=== PATIENT | female | born 2000 | race Caucasian/White ===

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

== ENCOUNTER 2019-03-17 14:31 | Outpatient (CLI) | payer OTHER ==
--- NOTE | 2019-05-03 16:54 | P.MSEPDOC ---
Presenting Problems - Arrival Data Date of Arrival on Unit: 03/17/19 Time of Arrival on Unit: 14:35 Mode of Transport: Ambulatory Disposition - Disposition Discharge Date: 03/17/19 Discharge Time: 14:48 I agree with the RN Medical Screening Exam: Yes Risk & Benefit of care provided described in d/c instruction: Yes Diagnosis: POSTCOITAL AND CONTACT BLEEDING (Spotting after intercourse. No evidence of labor or compromise. Pelvic rest until follows up with Dr. Lucas.)
== END 2019-03-17 14:49 | disposition home or self-care (01) ==
LOC: FBPOP 14:31
PROVIDERS: ATTEND Obstetrics & Gynecology
DX: O46.8X9 Other antepartum hemorrhage, unspecified trimester (principal); Z3A.00 Weeks of gestation of pregnancy not specified
CPT/HCPCS: 99213

== ENCOUNTER 2019-05-10 | Outpatient (CLI) | payer OTHER ==
--- NOTE | 2019-05-10 21:21 | P.MSEPDOC ---
Presenting Problems - Arrival Data Date of Arrival on Unit: 05/10/19 Time of Arrival on Unit: 12:31 Mode of Transport: Ambulatory - Complaint OB-Reason for Admission/Chief Complaint: Other Comment: prolapsed vagina Medical History - Information : 1 Para: 0 Term: 0 : 0 Abortions: Spontaneous or Elective: 0 Number of Living Children: 0 - Gestational Age Gestational Age by CECE (wks/days): 31 Weeks and 2 Days Review of Systems - Review of Systems Constitutional: No problems Breast: No problems ENT: No problems Cardiovascular: No problems Respiratory: No problems Gastrointestinal: No problems Genitourinary: No problems Musculoskeletal: No problems Neurological: No problems Skin: No problems Vital Signs - Temperature Temperature: 98 F Temperature Source: Temporal Artery Scan - Pulse Right Brachial Pulse Rate: 109 Pulse Assessment Method: Automatic Cuff - Respirations Respiratory Rate: 16 Oxygen Delivery Method: Room Air O2 Sat by Pulse Oximetry: 98 - Blood Pressure Right Arm Sitting Blood Pressure: 116/62 Blood Pressure Mean: 80 Blood Pressure Source: Automatic Cuff Medical Screen Scoring (Pre) - Cervical Exam Dilation: 0 cm = 0 Membranes: Intact - Uterine Contractions Frequency: N/A - Maternal Vital Signs Maternal Temperature: N/A Maternal Blood Pressure: N/A Signs of Preeclampsia: N/A Maternal Respirations: N/A - Maternal Trauma Maternal Trauma: N/A - Assessment - Baby A Baseline FHR: 135 Heart Rate - NICHD Category: Category I (Normal) = 0 NST: Reactive Position: N/A Station: N/A - Total Score - Baby A Total Score - Baby A: 0 - Total Score - Baby B Total Score - Baby B: 0 - Total Score - Baby C Total Score - Baby C: 0 - Level of Risk - Baby A Level of Risk - Baby A: Low (0-5) - Level of Risk - Baby B Level of Risk - Baby B: Low (0-5) - Level of Risk - Baby C Level of Risk - Baby C: Low (0-5) Medical Screen Scoring (Post) - Assessment - Baby A Heart Rate - NICHD Category: Category I (Normal) = 0 - Total Score Total Score - Baby A: 0 - Post Treatment Level of Risk Post Treatment Level of Risk - Baby A: Low (0-5) Physician Notification (Post) - Physician Notified Physician Notified Date: 05/10/19 Physician Notified Time: 12:55 Spoke With: Lance Manuel Order Received: Yes (discharge) - Notification Comment Comment: checked cervix, closed/thick/high, no bleeding, no protrusions noted. Disposition - Disposition OB Disposition: Discharge to home, Written follow up instructions reviewed Discharge Date: 05/10/19 Discharge Time: 13:00 I agree with the RN Medical Screening Exam: Yes Risk & Benefit of care provided described in d/c instruction: Yes Diagnosis: RELATED CONDITIONS, UNSPECIFIED, THIRD TRIMESTER
== END 2019-05-10 13:00 | disposition home or self-care (01) ==
CPT/HCPCS: 59025; G0463; 99213

== ENCOUNTER 2019-06-28 19:45 | Outpatient (CLI) | payer OTHER ==
[2019-06-28 21:01] VITALS: RESP 16
[2019-06-28 21:02] VITALS: BP 122/70; PULSE 82; TEMP 98.1
--- NOTE | 2019-06-29 06:32 | P.MSEPDOC ---
Presenting Problems - Arrival Data Date of Arrival on Unit: 06/28/19 Time of Arrival on Unit: 19:45 Mode of Transport: Ambulatory - Complaint OB-Reason for Admission/Chief Complaint: Rule Out SROM Comment: patient states water may have broken at 3pm, small amount of clear fluid. Medical History - Information : 1 Para: 0 Term: 0 : 0 Abortions: Spontaneous or Elective: 0 Number of Living Children: 0 - Gestational Age Gestational Age by CECE (wks/days): 38 Weeks and 2 Days Review of Systems - Review of Systems Constitutional: No problems Breast: No problems ENT: No problems Cardiovascular: No problems Respiratory: No problems Gastrointestinal: No problems Genitourinary: No problems Musculoskeletal: No problems Neurological: No problems Skin: No problems Vital Signs - Temperature Temperature: 98.1 F Temperature Source: Temporal Artery Scan - Pulse Right Brachial Pulse Rate: 82 Pulse Assessment Method: Automatic Cuff - Respirations Respiratory Rate: 16 Oxygen Delivery Method: Room Air O2 Sat by Pulse Oximetry: 100 - Blood Pressure Right Arm Blood Pressure: 122/70 Blood Pressure Mean: 87 Blood Pressure Source: Automatic Cuff Medical Screen Scoring (Pre) - Cervical Exam Dilation: 1-3 cm = 1 Effacement: More than 50% = 2 Membranes: Intact - Uterine Contractions Frequency: N/A Duration: N/A Intensity: N/A - Maternal Vital Signs Maternal Temperature: N/A Maternal Blood Pressure: N/A Signs of Preeclampsia: N/A Maternal Respirations: N/A - Maternal Trauma Maternal Trauma: N/A - Assessment - Baby A Baseline FHR: 145 Heart Rate - NICHD Category: Category I (Normal) = 0 NST: Reactive Position: N/A Station: N/A - Total Score - Baby A Total Score - Baby A: 3 - Total Score - Baby B Total Score - Baby B: 3 - Total Score - Baby C Total Score - Baby C: 3 - Level of Risk - Baby A Level of Risk - Baby A: Low (0-5) - Level of Risk - Baby B Level of Risk - Baby B: Low (0-5) - Level of Risk - Baby C Level of Risk - Baby C: Low (0-5) Physician Notification (Pre) - Physician Notified Physician Notified Date: 06/28/19 Physician Notified Time: 20:20 Physician/Practitioner Notifed:: Dr. Nieves Spoke With: Dr. Nievse New Order Received: Yes - Notification Comment Comment: RN updated Dr. Nieves that patient presented to triage with complaints that. her water had broken around 3pm. Amnisure and cervical exam completed by RN. Amnisure negative as reported by two RNs. Cervical exam of 1.5/80/-2 remains unchanged from office exam. Dr. Nieves states patient may be discharged with instructions to keep follow up appointment with Dr. Lucas and if they understand reasons to return to triage. Patient verbalizes understanding Disposition - Disposition OB Disposition: Discharge to home Discharge Date: 06/28/19 Discharge Time: 20:30 I agree with the RN Medical Screening Exam: Yes Risk & Benefit of care provided described in d/c instruction: Yes Diagnosis: FALSE LABOR AT OR AFTER 37 COMPLETED WEEKS OF GESTATION (No evidence of rupture membranes. heart tones are category 1. Patient was given labor instructions and indications to return.)
== END 2019-06-28 20:30 | disposition home or self-care (01) ==
LOC: FBPOP 19:45
PROVIDERS: ATTEND Obstetrics & Gynecology
DX: O47.1 False labor at or after 37 completed weeks of gestation (principal); Z3A.38 38 weeks gestation of pregnancy
CPT/HCPCS: 59025; 84112; G0463; 99213

== ENCOUNTER 2019-07-04 13:31 | Inpatient (IN) | payer OTHER ==
[2019-07-04 14:40] VITALS: BMI 31.1
[2019-07-04] MEDS ORDERED: OXYTOCIN 10 UNIT/ML 1 ML VIAL IM PRN (14:52)
[2019-07-04] MEDS ORDERED: METHYLERGONOVINE 0.2 MG/ML 1 ML AMP IM PRN (14:52)
[2019-07-04] MEDS ORDERED: CARBOPROST TROMETHAMINE 250 MCG/ML 1 ML AMP IM PRN (14:52)
[2019-07-04] MEDS ORDERED: LIDOCAINE 0.5% (PF) 5 MG/ML (50 ML SDV) SQ PRN (14:52)
[2019-07-04] MEDS ORDERED: TERBUTALINE 1 MG/ML VIAL SQ PRN (14:52)
[2019-07-04 15:04] LABS: Basophils % (A) 0 %; Eosinophils % (A) 0 %; HCT 37.3 % (34.0-46.0); HGB 12.7 gm/dL (11.4-16.0); Lymphocytes # (A) 1.5 k/uL (1.0-4.8); Lymphocytes % (A) 14 %; MCH 31.7 pg (25.0-35.0); MCHC 34.1 g/dL (31.0-37.0); Mean Platelet Volume 8.6; Monocytes # (A) 0.5 k/uL (0-1.0); Monocytes % (A) 5 %; Neutrophils # (A) 8.5 k/uL (1.3-7.7); Neutrophils % (A) 78 %; Platelet Count 184 k/uL (150-450); RBC 4.01 m/uL (3.80-5.40); RDW 12.9 % (11.5-15.5); WBC 10.8 k/uL (4.0-11.0)
[2019-07-04] MEDS: OXYTOCIN 30 UNITS/500 ML NS 30 UNIT in SALINE 1 500ML.BAG IV SCH (15:25)
[2019-07-04] MEDS: LACTATED RINGERS 1,000 ML IV SCH ×3 (15:26→20:53)
--- NOTE | 2019-07-04 23:12 | P.HPOB ---
History of Present Illness H&P Date: 07/04/19 Chief Complaint: Intrauterine at term: Spontaneous rupture membranes: Antonio Rivera is a 19-year-old at 39 weeks 1 day gestation who arrives following spontaneous rupture membranes at home. I did check her and she was dilated to 3 cm and there was still for bag noted and it was ruptured with clear fluid noted. Category 1 tracings noted on the monitor. Her course generally speaking has been unremarkable. She voices no complaints and she is feeling well at this time. We'll send 36 weeks revealed baby to be in the 87th percentile no other significant reason for macrosomia based on review of the chart. Pertinent labs could be possible type, Rh and it was negative, rubella was immune, hepatitis B surface antigen and RPR as well as GBS were negative. It is noted that she failed her one-hour hour Glucola screen but easily passed her 3 hour Glucola screen. Past Medical History Additional Past Medical History / Comment(s): scoliosis History of Any Multi-Drug Resistant Organisms: None Reported Past Surgical History: No Surgical Hx Reported Past Anesthesia/Blood Transfusion Reactions: No Reported Reaction Past Psychological History: Anxiety, Depression, PTSD Smoking Status: Never smoker Past Alcohol Use History: Daily Past Drug Use History: Marijuana - Past Family History Father History Unknown: Yes Medications and Allergies Home Medications Medication Instructions Recorded Confirmed Type Pnv No.95/Ferrous Fum/Folic AC 1 tab PO DAILY 06/28/19 07/04/19 History [ Multivitamin Tablet] Allergies Allergy/AdvReac Type Severity Reaction Status Date / Time Bleach (Sodium Hypochlorite) Allergy Rash/Hives Verified 06/28/19 19:59 Exam Osteopathic Statement: *. No significant issues noted on an osteopathic structural exam other than those noted in the History and Physical/Consult. Vital Signs Temp Pulse Resp BP Pulse Ox 07/04/19 14:13 98.1 F 94 17 133/68 97 Intake and Output 07/04/19 07/04/19 07/05/19 14:59 22:59 06:59 Other: Weight 77.111 kg - OBG Physical Exam Breast: both: normal (no masses) Abdomen: bowel sounds normal, no diffuse tenderness, no bruit present, no guarding noted, no hepatomegaly, no splenomegaly, no mass Vulva: both: normal Vagina: normal moisture, no discharge Cervix: no lesion, no discharge Uterus: normal size, normal contour Adnexa: both: normal Anus/Rectum: normal perianal skin, no rectal mass, no hemorrhoids, heme negative Results Result Diagrams: 07/04/19 14:50 Abnormal Lab Results - Last 24 Hours (Table) 07/04/19 Range/Units 14:50 Neutrophils # 8.5 H (1.3-7.7) k/uL
--- NOTE | 2019-07-04 23:41 | P.PROBDLV ---
Vaginal Delivery Note - . Vaginal Delivery Note: Patient progressed to complete and pushing with spontaneous vaginal delivery of a viable female over a second-degree midline laceration. Baby was delivered from left occiput anterior position. Following delivery of the head I immediately notated of retraction of head back onto the perineum. This is indicative of a suspected shoulder dystocia. At this point patient was placed in a deep Dana position and the head of the bed was lowered and the knees w ere hyperflexed deeply. The Code blue button was also initiated at this time so that any extra available personnel would be able to respond for this delivery. No attempt at anterior shoulder delivery was made as my immediate reaction was that this was a significant shoulder dystocia based on how firmly the baby retracted onto the perineum. Therefore a posterior shoulder delivery was initially attempted but I was unable to sweep the posterior arm across the face due to how low in position the arm was. Therefore I grasped under the posterior axilla and attempted to rotate the baby in a counter-clockwise fashion to release the anterior shoulder. When this proved unsuccessful the patient was instructed to stop pushing and suprapubic pressure was applied in trying to assist the baby in a clockwise fashion to release the anterior shoulder. I was after 1 attempt able to rotate the baby's anterior shoulder out from underneath the pubic bone and then the baby was delivered easily from that point. With a posterior arm delivery in a clockwise rotation with suprapubic assistance. Once baby was fully delivered mouth and nares were quickly bulb suctioned and baby was placed on mother's abdomen where the umbilical cord was clamped and cut with nursery personnel present to assume care. The total time the baby was on the perineum was between 45 and 60 seconds by our estimation. scores were 8 and 9 at one and 5 minutes respectively and the weight was 9 lbs. 13 oz. Following delivery spontaneous cry is noted both mother and baby grossly appear stable. A second degree midline laceration was easily repaired with 3-0 Vicryl following 1% Xylocaine for analgesia.
--- NOTE | 2019-07-05 06:32 | P.PN ---
Progress Note - Text Progress Note Date: 07/05/19 Patient was seen and evaluated approximately 2:30 this morning. Vital signs were stable she was afebrile. Lochia was significantly improved. Due to the complexity of the delivery I wanted to make sure that she understood and was able to ask any and all questions regarding what was occurring during the delivery as both she and her at the time of delivery were understandably very nervous and concerned about difficulty she had in delivering her child. We discussed the delivery once all family left and complications with shoulder dystocia were explained. We discussed the various maneuvers that were used to try and release the anterior shoulder from underneath the pubic bone and what the purpose of each maneuver was in the process of delivering her child. She seems to understand and grasp the gravity of how difficult it was to get her baby delivered. She remembers many some of maneuvers were used to assistance in delivering her baby as well. All questions were answered for both she and her regarding delivery and will await evaluation from pediatrics regarding baby's overall condition.
[2019-07-05] MEDS ORDERED: ROPIVACAINE 100 MG, fentaNYL (PF) 200 MCG in SODIUM CHLORIDE 0.9% 76 ML EPIDURAL ONE (07:27)
[2019-07-05] MEDS ORDERED: BENZOCAINE/MENTHOL SPRAY 1 GM/SPRAY AEROSOL TOPICAL PRN (08:07)
[2019-07-05] MEDS ORDERED: HYDROCORTISONE 2.5% RECTAL CREAM 30 GM TUBE RECTAL PRN (08:07)
[2019-07-05] MEDS ORDERED: diphenhydrAMINE 50 MG/ML 1 ML VIAL IVP PRN ×2 (08:07)
[2019-07-05] MEDS ORDERED: ACETAMINOPHEN TAB 325 MG TAB PO PRN (08:07)
[2019-07-05] MEDS ORDERED: diphenhydrAMINE 50 MG CAP PO PRN (08:07)
[2019-07-05] MEDS ORDERED: diphenhydrAMINE 25 MG CAP PO PRN (08:07)
[2019-07-05] MEDS ORDERED: WITCH HAZEL 1 EACH MED..PAD TOPICAL PRN (08:07)
[2019-07-05] MEDS ORDERED: ZOLPIDEM 5 MG TAB PO PRN (08:07)
[2019-07-05] MEDS ORDERED: SIMETHICONE 80 MG CHEWABLE PO PRN (08:07)
[2019-07-05] MEDS ORDERED: LANOLIN CREAM 5 GM TUBE TOPICAL PRN (08:07)
--- NOTE | 2019-07-05 08:45 | P.PNOBGVD ---
Subjective - Subjective Principal diagnosis: Status post vaginal delivery day #1 Interval history: Patient is doing well. Lochia is decreasing. Pain is fairly well controlled. Her baby currently is in level I nursery but she is planning on attempting to breast-feed. Patient reports: Reports appetite normal, Reports voiding normally, Reports pain well controlled, Reports ambulating normally : doing well, other (In level I nursery for observation) Objective - Latest Vital Signs Latest vital signs: Vital Signs Temp Pulse Resp BP Pulse Ox 07/05/19 04:00 98.5 F 98 16 123/81 07/05/19 01:00 98.7 F 71 16 127/81 07/05/19 00:30 79 16 133/77 07/05/19 00:00 73 16 142/79 07/04/19 23:45 80 16 130/75 07/04/19 23:30 100 16 135/81 07/04/19 23:15 96 16 131/83 07/04/19 23:00 99.1 F 97 16 132/76 07/04/19 14:13 98.1 F 94 17 133/68 97 Intake and Output 07/04/19 07/05/19 07/05/19 22:59 06:59 14:59 Output Total 100 200 Balance -100 -200 Output: Urine 100 Estimated Blood Loss 200 Other: # Voids 1 - Exam Extremities: Present: edema (1+ pitting and lower extremities). Absent: tenderness Abdomen: Present: normal appearance, soft. Absent: distention, tenderness Uterus: Present: normal, firm. Absent: tenderness - Labs Labs: Abnormal Lab Results - Last 24 Hours (Table) 07/04/19 Range/Units 14:50 Neutrophils # 8.5 H (1.3-7.7) k/uL Assessment and Plan Assessment: Status post vaginal delivery complicated by shoulder dystocia day #1 Plan: We'll continue to observe today. Continue care. Will work on breast-feeding. Anticipate discharge home tomorrow.
[2019-07-05] MEDS: IBUPROFEN 600 MG TAB PO PRN ×2 (08:47→20:40)
[2019-07-05 09:03] LABS: Basophils % (A) 0 %; Eosinophils % (A) 0 %; HCT 37.4 % (34.0-46.0); HGB 12.4 gm/dL (11.4-16.0); Lymphocytes % (A) 12 %; MCH 31.4 pg (25.0-35.0); MCHC 33.1 g/dL (31.0-37.0); MCV 94.7 fL (80.0-100.0); Mean Platelet Volume 9.2; Monocytes % (A) 6 %; Neutrophils % (A) 80 %; Platelet Count 167 k/uL (150-450); RBC 3.95 m/uL (3.80-5.40); WBC 16.3 k/uL (4.0-11.0)
[2019-07-05] MEDS ORDERED: HYDROcodone/APAP 5-325MG 1 EACH TAB PO PRN (16:36)
[2019-07-05] MEDS: SENNOSIDES-DOCUSATE SODIUM 1 EACH TAB PO SCH (20:35)
--- NOTE | 2019-07-05 22:10 | XR ---
EXAMINATION TYPE: XR pelvis AP view DATE OF EXAM: 07/05/2019 COMPARISON: NONE HISTORY: Pelvic pain TECHNIQUE: Single view FINDINGS: . Proximal femurs and hip joints are intact. There is no sign of hip dysplasia. Sacroiliac joints appear intact. There is probably a small amount of air at the pubic symphysis. IMPRESSION: Small linear collection air at the pubic symphysis could relate to minimal diastases.
[2019-07-06] MEDS: IBUPROFEN 600 MG TAB PO PRN (07:48)
[2019-07-06 07:55] VITALS: BP 135/73; PULSE 60; RESP 16; TEMP 97.5
--- NOTE | 2019-07-06 08:52 | P.DS ---
Providers Date of admission: 07/04/19 14:06 Expected date of discharge: 07/06/19 Attending physician: Katie Lucas Consults: 07/05/19 16:45 Consult Physician Routine Consulting Provider: Keith Sher Consult Reason/Comments: POSSIBLE PUBIC SEPARATION DURING SHOULDER DYSTOCIA DELIVERY. DIFFICULT AMBU Do you want consulting provider notified?: Already Contacted Primary care physician: Stated None Hospital Course: This is a 19-year-old female 1 para 0 at 39 and one sevenths weeks who presented to labor and delivery with complaints of spontaneous rupture of membranes. She underwent oxytocin augmentation of labor and delivered a viable female infant on 07/04/2019 with scores of 8 at 1 minute and 9 at 5 minutes and weight of 9 lbs. 13 oz. Her delivery was complicated by a shoulder dystocia which is described in the vaginal delivery note by Dr. Ortiz. The baby is not moving the right arm currently but is moving the fingers of the right hand. The x-rays by pediatrics do not show any fracture. Her course was complicated by pubic bone pain starting in the evening of day #1. She was given [place] and orthopedics was consulted. She did not like how she felt on the [place] and therefore does not desire to take it any further. She is walking better this morning. She is still sore over her pubic bone area. She is breast-feeding well. Lochia is decreasing. Vital signs are stable. Abdomen is soft with fundus firm and nontender. She is tender over the pubic symphysis area. Extremities show 1+ pitting edema. Impression is status post vaginal delivery complicated by shoulder dystocia day #2. Plan is to discharge home today. Routine instructions are given. She will be given a prescription for ibuprofen 600 mg every 6 hours as needed. She is also encouraged to use Tylenol in between if necessary. She will follow up with orthopedics for potential physical therapy. She is also given and abdominal binder to help stabilize her pelvis. She is advised to call the office if she has any further questions or concerns prior to her visit. Pertinent Studies: Pelvic x-ray Procedures: Oxytocin augmentation of labor Spontaneous vaginal delivery of a viable female on 07/04/2019 complicated by shoulder dystocia Patient Condition at Discharge: Stable Plan - Discharge Summary New Discharge Prescriptions: New Ibuprofen [Motrin] 600 mg PO Q6HR PRN #60 tab PRN Reason: Mild Pain Or Fever >= 100.5 Continue Pnv No.95/Ferrous Fum/Folic AC [ Multivitamin Tablet] 1 tab PO DAILY Discharge Medication List Pnv No.95/Ferrous Fum/Folic AC [ Multivitamin Tablet] 1 tab PO DAILY 06/28/19 [History] Ibuprofen [Motrin] 600 mg PO Q6HR PRN #60 tab 07/06/19 [Rx] Follow up Appointment(s)/Referral(s): Katie Lucas DO [Doctor of Osteopathic Medicine] - 6 Weeks Activity/Diet/Wound Care/Special Instructions: Instructions 1. Do not begin any exercise program for 3 weeks. 2. Do not resume sexual relations for 3 weeks or longer if uncomfortable. 3. You may take tub baths or showers at any time. 4. You may use tampons if desired after 3 weeks. 5. Keep the area of episiotomy (stitches) clean and dry. 6. If you are not nursing, wear a good fitting, supportive bra during the day and limit fluid intake for at least 1 week to prevent breast engorgement. 7. Call the office, [phone], within the next week to make appointment for your 6 week checkup if it has not already been made. 8. Report any of the following occurrences to the doctor promptly: a. Heavy, excessive bleeding b. Chills, fever c. Burning or frequency of urination d. Pain or redness and breasts if nursing e. Increasing pain or swelling in episiotomy (stitches). In addition to the above instructions, the following additional should be followed: 1. No heavy lifting or straining (exercising) until after 6 week checkup. 2. Keep abdominal incision clean and dry: You may wear a dressing if more comfortable. 3. Make office appointment for 10 days after going home or as instructed by her doctor. Discharge Disposition: HOME SELF-CARE
--- NOTE | 2019-07-06 09:00 | P.CNOR ---
History of Present Illness - [facility] Consult date: 07/06/19 Consult reason: joint pain History of present illness: Patient is a 19-year-old female who was seen and evaluated on the family birthing unit. Patient gave vaginally to a nonanatomic yesterday, there was enough social history social. After the birthing process, patient did complain of a lot of pelvic pain. The INTERNAL AUDIT CONSULTANT doctor did consult orthopedics for this issue. X-rays reportedly last night. X-rays demonstrated slight widening of the pubic symphysis, demonstrating a pubic symphysis diastasis. Evaluation today at bedside, the INTERNAL AUDIT CONSULTANT doctor was present, was able to discuss this with her and the patient. She states that the patient was ambulating better today, pain is better. She does still have discomfort over the pubic stenosis with palpation. She denies any numbness or tingling of the lower extremities, she has no issues with bowel or bladder function at this time. She denies any significant groin pain bilaterally. She denies any previous orthopedic surgeon involving the bilateral lower extremities. Review of Systems Constitutional: Reports as per [facility] Past Medical History Additional Past Medical History / Comment(s): scoliosis History of Any Multi-Drug Resistant Organisms: None Reported Past Surgical History: No Surgical Hx Reported Past Anesthesia/Blood Transfusion Reactions: No Reported Reaction Past Psychological History: Anxiety, Depression, PTSD Smoking Status: Never smoker Past Alcohol Use History: Daily Past Drug Use History: Marijuana - Past Family History Father History Unknown: Yes Medications and Allergies Home Medications Medication Instructions Recorded Confirmed Type Pnv No.95/Ferrous Fum/Folic AC 1 tab PO DAILY 06/28/19 07/04/19 History [ Multivitamin Tablet] Ibuprofen [Motrin] 600 mg PO Q6HR PRN #60 tab 07/06/19 Rx Allergies Allergy/AdvReac Type Severity Reaction Status Date / Time Bleach (Sodium Hypochlorite) Allergy Rash/Hives Verified 06/28/19 19:59 Physical Examination General orthopedic exam: Patient was visualized ambulating in the room today, no significant gait dysfunction Range of motion of the bilateral lower extremities reproduces some slight discomfort in the pelvic region, there is no groin pain Patient has full range of motion with the knees bilaterally, along with foot and ankles Sensation to light touch stress extremities are intact, dorsalis pedis pulse bilaterally is 2+ Results - Labs Labs: Abnormal Lab Results - Last 24 Hours (Table) 07/05/19 Range/Units 08:19 WBC 16.3 H (4.0-11.0) k/uL Neutrophils # 13.0 H (1.3-7.7) k/uL H & H 07/04/19 07/05/19 Range/Units 14:50 08:19 Hgb 12.7 12.4 (11.4-16.0) gm/dL Hct 37.3 37.4 (34.0-46.0) % Result Diagrams: 07/05/19 08:19 Assessment and Plan Plan: Imaging: X-rays of the pelvis were reviewed, slight widening of the pubic symphysis noted, no other acute bony abnormalities Assessment: 1. Pubic symphysis diastasis 2. Recent vaginal delivery Plan: Was able to discuss the case, including with physical exam findings and imaging studies may attending Dr. Sher. Recommend physical therapy evaluation with a good home exercise program for pelvic floor strengthening. I discussed with the patient and activity modification, including avoiding heavy lifting and crossing legs [id number] Tylenol as needed for discomfort Weight-bear as tolerated We will be available for any further questions regarding this patient Time with Patient: Less than 30
[2019-07-06] MEDS: LACTATED RINGERS 1,000 ML IV SCH ×2 (09:08→09:09)
[2019-07-06] MEDS: OXYTOCIN 30 UNITS/500 ML NS 30 UNIT in SALINE 1 500ML.BAG IV SCH (09:09)
[2019-07-06] MEDS: SENNOSIDES-DOCUSATE SODIUM 1 EACH TAB PO SCH (09:10)
--- NOTE | 2019-07-06 19:18 | P.MSEPDOC ---
Presenting Problems - Arrival Data Date of Arrival on Unit: 07/04/19 Time of Arrival on Unit: 14:25 Mode of Transport: Wheelchair - Complaint OB-Reason for Admission/Chief Complaint: Rule Out SROM Comment: pt here with r/o rom around 1215 today, pt was at appt with dr lucas this am and. was dilated to 2.5cm, pt has been spotting bright red mucous since, denies contractions,. abd soft and non tender, reports + fm, denies complications Medical History - Information : 1 Para: 0 Term: 0 : 0 Abortions: Spontaneous or Elective: 0 Number of Living Children: 0 - Gestational Age Gestational Age by CECE (wks/days): 39 Weeks and 3 Days Review of Systems - Review of Systems Constitutional: No problems Breast: No problems ENT: No problems Cardiovascular: No problems Respiratory: No problems Gastrointestinal: No problems Genitourinary: No problems Musculoskeletal: No problems Neurological: No problems Skin: No problems Vital Signs - Temperature Temperature: 97.5 F Temperature Source: Oral - Pulse Right Brachial Pulse Rate: 60 Pulse Assessment Method: Automatic Cuff - Respirations Respiratory Rate: 16 Oxygen Delivery Method: Room Air - Blood Pressure Right Arm Blood Pressure: 135/73 Blood Pressure Mean: 93 Blood Pressure Source: Automatic Cuff Medical Screen Scoring (Pre) - Cervical Exam Dilation: 1-3 cm = 1 Effacement: More than 50% = 2 Membranes: Ruptured = 3 - Uterine Contractions Frequency: > 5 minutes apart = 1 Duration: > 40 seconds = 2 Intensity: N/A - Maternal Vital Signs Maternal Temperature: N/A Maternal Blood Pressure: N/A Signs of Preeclampsia: N/A Maternal Respirations: N/A - Maternal Trauma Maternal Trauma: N/A - Assessment - Baby A Baseline FHR: 155 Heart Rate - NICHD Category: Category I (Normal) = 0 NST: Reactive Position: N/A Station: N/A - Total Score - Baby A Total Score - Baby A: 9 - Total Score - Baby B Total Score - Baby B: 9 - Total Score - Baby C Total Score - Baby C: 9 - Level of Risk - Baby A Level of Risk - Baby A: Medium (6-9) - Level of Risk - Baby B Level of Risk - Baby B: Medium (6-9) - Level of Risk - Baby C Level of Risk - Baby C: Medium (6-9) Physician Notification (Pre) - Physician Notified Physician Notified Date: 07/04/19 Physician Notified Time: 14:21 Physician/Practitioner Notifed:: Dr Lucas Spoke With: Dr Lucas New Order Received: Yes (admit for labor to [facility]) Disposition - Disposition OB Disposition: Admit Discharge Date: 07/06/19 Discharge Time: 11:05 I agree with the RN Medical Screening Exam: Yes Risk & Benefit of care provided described in d/c instruction: Yes Diagnosis: 39 WEEKS GESTATION OF
== END 2019-07-06 11:05 | disposition home or self-care (01) | DRG 807 ==
LOC: FBPOP 13:31 → 4FBP 14:06
PROVIDERS: ADMIT Obstetrics & Gynecology; ATTEND Obstetrics & Gynecology
PROC: 10D07Z7 Extraction of Products of Conception, Internal Version, Via Natural or Artificial Opening (ICD-10-PCS; principal; 2019-07-04)
PROC: 0KQM0ZZ Repair Perineum Muscle, Open Approach (ICD-10-PCS; 2019-07-04)
PROC: 00HU33Z Insertion of Infusion Device into Spinal Canal, Percutaneous Approach (ICD-10-PCS; 2019-07-04)
PROC: 3E0R3BZ Introduction of Anesthetic Agent into Spinal Canal, Percutaneous Approach (ICD-10-PCS; 2019-07-04)
DX: O70.1 Second degree perineal laceration during delivery (principal); Z37.0 Single live birth; M41.9 Scoliosis, unspecified; O26.72 Subluxation of symphysis (pubis) in childbirth; O36.60X0 Maternal care for excessive fetal growth, unspecified trimester, not applicable or unspecified; O66.0 Obstructed labor due to shoulder dystocia; O99.619 Diseases of the digestive system complicating pregnancy, unspecified trimester; K21.9 Gastro-esophageal reflux disease without esophagitis; Z79.899 Other long term (current) drug therapy; Z3A.39 39 weeks gestation of pregnancy; Z86.59 Personal history of other mental and behavioral disorders; Z91.048 Other nonmedicinal substance allergy status
CPT/HCPCS: 59025; 72170; 84112; 85025; 86850; 86900; 86901; 88307; 99213

== ENCOUNTER 2020-04-06 19:25 | Inpatient (IN) | payer MEDICAID, OTHER ==
[2020-04-06] MEDS ORDERED: DIPH,PERTUS(ACELL)TETVAC-LF 0.5 ML VIAL IM ONE (19:35)
--- NOTE | 2020-04-06 19:42 | ED ---
General Adult HPI <Keith Ochoa - Last Filed: 04/06/20 21:20> - General Source: patient, police Mode of arrival: ambulatory Limitations: no limitations <Stevo Aceves - Last Filed: 04/06/20 22:48> - General Chief complaint: Psychiatric Symptoms Stated complaint: Petition Time Seen by Provider: 04/06/20 19:35 - History of Present Illness Initial comments: Dictation was produced using [employer] dictation software. please excuse any grammatical, word or spelling errors. This patient was cared for during a federal and state declared state of emergency secondary to Covid 19 Chief Complaint: 20-year-old female presents with suicidal ideation and behavior History of Present Illness: 20-year-old female she is brought in by law enforcement. Law enforcement was allegedly called by patient's fiance. Today patient's been elicited disrespected. She began cutting herself on the wrist. Patient caused multiple lacerations to the bilateral anterior forearms. Patient states she's been suicidal before. She feels depressed. The ROS documented in this emergency department record has been reviewed and confirmed by me. Those systems with pertinent positive or negative responses have been documented in the HPI. All other systems are other negative and/or noncontributory. PHYSICAL EXAM: General Impression: Alert and oriented x3, not in acute distress HEENT: Normocephalic atraumatic, extra-ocular movements intact, pupils equal and reactive to light bilaterally, mucous membranes moist. Cardiovascular: Heart regular rate and rhythm Chest: Able to complete full sentences, no retractions, no tachypnea Abdomen: abdomen soft, non-tender, non-distended, no organomegaly Musculoskeletal: Pulses present and equal in all extremities, no peripheral edema Motor: no focal deficits noted Neurological: CN II-XII grossly intact, no focal motor or sensory deficits noted Skin: Intact with no visualized rashes Multiple superficial lacerations to the bilateral anterior forearms. Some are very superficial but there is a portion that is deeper measuring approximately 6 cm total for both forearms Psych: Normal affect and mood ED course: 20-year-old female with suicidal behavior. Vital Signs upon arrival are within acceptable limits. Lacerations were repaired by physician virtual assistant, Andres Ochoa. Patient medically cleared for EPS evaluation. EPS evaluated patient and will admit to inpatient psychiatry. (Stevo Aceves) - Related Data Home Medications Medication Instructions Recorded Confirmed No Known Home Medications 04/06/20 04/06/20 Allergies Allergy/AdvReac Type Severity Reaction Status Date / Time Bleach (Sodium Hypochlorite) Allergy Rash/Hives Verified 04/06/20 21:26 Review of Systems ROS Other: All systems not noted in ROS Statement are negative. <Keith Ochoa - Last Filed: 04/06/20 21:20> ROS Other: All systems not noted in ROS Statement are negative. <Stevo Aceves - Last Filed: 04/06/20 22:48> ROS Statement: Those systems with pertinent positive or pertinent negative responses have been documented in the HPI. Past Medical History Additional Past Medical History / Comment(s): scoliosis History of Any Multi-Drug Resistant Organisms: None Reported Past Surgical History: No Surgical Hx Reported Past Anesthesia/Blood Transfusion Reactions: No Reported Reaction Past Psychological History: Anxiety, Depression, PTSD Smoking Status: Vaper Past Alcohol Use History: Daily Past Drug Use History: Marijuana - Past Family History Father History Unknown: Yes <Stevo Aceves - Last Filed: 04/06/20 22:48> General Exam Limitations: no limitations <Stevo Aceves - Last Filed: 04/06/20 22:48> Course Vital Signs 04/06/20 04/06/20 04/06/20 19:29 20:28 22:33 Temperature 99.0 F 98.1 F Pulse Rate 95 69 Respiratory 20 16 18 Rate Blood Pressure 148/93 135/79 O2 Sat by Pulse 99 98 Oximetry Procedures - Laceration Laceration #1 Consent Obtained: verbal consent Indication: laceration Site: upper extremity (left palmar wrist ) Size (cm): 2 (2 cm ) Description: linear Depth: simple, single layer Anesthetic Used: lidocaine 1% Anesthesia Technique: local infiltration Amount (mls): 3 Pre-repair: wound explored, irrigated extensively Type of Sutures: nylon Size of Sutures: 5-0 Number of Sutures: 4 Technique: simple, interrupted Patient Tolerated Procedure: well, no complications Laceration #2 Consent Obtained: verbal consent Indication: laceration Site: upper extremity (right forearm palmar) Size (cm): 2 Description: linear Depth: simple, single layer Anesthetic Used: lidocaine 1% Anesthesia Technique: local infiltration Amount (mls): 2 Pre-repair: wound explored, irrigated extensively, deep structures intact Type of Sutures: nylon Size of Sutures: 5-0 Number of Sutures: 2 Technique: simple, interrupted Patient Tolerated Procedure: well, no complications <Keith Ochoa - Last Filed: 04/06/20 21:20> Medical Decision Making <Keith Ochoa - Last Filed: 04/06/20 21:20> - Medical Decision Making I was asked by attending physician Dr. Aceves to perform laceration repair. The patient has multiple superficial lacerations on palmar aspects of both for earms. One laceration on left forearm was open for approximately 2 cm. This was approximated with 4 simple interrupted sutures. The remainder of the laceration which is superficial was closed with Steri-Strips. All lacerations were vigorously irrigated. On the right forearm palmar aspects patient also has multiple superficial lacerations. 2 cm laceration does require closure. 2 simple interrupted sutures. 2 steri strips also used (Keith Ochoa) - Lab Data Lab Results 04/06/20 04/06/20 Range/Units 20:35 20:42 Urine HCG, Qual Not Detected (Not Detectd) Urine Opiates Screen Not Detected (NotDetected) Ur Oxycodone Screen Not Detected (NotDetected) Urine Methadone Screen Not Detected (NotDetected) Ur Propoxyphene Screen Not Detected (NotDetected) Ur Barbiturates Screen Not Detected (NotDetected) U Tricyclic Antidepress Not Detected (NotDetected) Ur Phencyclidine Scrn Not Detected (NotDetected) Ur Amphetamines Screen Not Detected (NotDetected) U Methamphetamines Scrn Not Detected (NotDetected) U Benzodiazepines Scrn Not Detected (NotDetected) Urine Cocaine Screen Not Detected (NotDetected) U Marijuana (THC) Screen Detected H (NotDetected) Disposition <Keith Ochoa - Last Filed: 04/06/20 21:20> Decision Time: 22:48 <Stevo Aceves - Last Filed: 04/06/20 22:48> Clinical Impression: Suicidal behavior Disposition: ADMITTED IP TO THIS [facility] Condition: Fair Referrals: None,Stated [Primary Care Provider] - 1-2 days
[2020-04-06] MEDS: LIDOCAINE 1%-EPI 1:100,000 20 ML VIAL SQ STA ×2 (20:02→20:09)
[2020-04-06] MEDS ORDERED: LIDOCAINE 1% INJ 10MG/ML (20 ML MDV) SQ STA (20:10)
[2020-04-06 21:01] LABS: Amphetamine Screen,Urine Not Detected (NotDetected); Barbiturate Screen,Urine Not Detected (NotDetected); Benzodiazepines Screen,Urine Not Detected (NotDetected); Cocaine Screen,Urine Not Detected (NotDetected); Methadone Screen, Urine Not Detected (NotDetected); Opiate Screen,Urine Not Detected (NotDetected); Oxycodone Screen, Urine Not Detected (NotDetected); Phencyclidine Screen,Urine Not Detected (NotDetected); Tricyclic Antidepressant,Urine Not Detected (NotDetected); Urn Cannabinoid Scrn Detected (NotDetected)
[2020-04-06] MEDS ORDERED: ACETAMINOPHEN TAB 325 MG TAB PO PRN (23:04)
[2020-04-06] MEDS ORDERED: MAG HYDROX/AL HYDROX/SIMETH 30 ML CUP PO PRN (23:04)
[2020-04-06] MEDS ORDERED: MAGNESIUM HYDROXIDE 2,400 MG/10 ML CUP PO PRN (23:04)
[2020-04-06] MEDS: LORazepam 1 MG TAB PO PRN (23:56)
--- NOTE | 2020-04-07 04:09 | P.CONS ---
History of Present Illness - Reason for Consult Consult date: 04/07/20 - History of Present Illness Patient is a 20-year-old female with a PMH of depression who presented to the ED with suicidal ideation. The patient was admitted to the mental health unit where she was seen and evaluated earlier today. The patient reports that due to issues in her social life and her feelings of self worth, she had been contemplating suicide and had thereby cut herself on her forearms. The patient was brought in under police custody after her fianc had called due to the above incident. The patient had multiple sutures placed in the emergency room. At time of the interview, she was tearful though denied any active complaints. She denied chest pain, shortness of breath or chills, nausea, or vomiting. Laboratory evaluation from the emergency room revealed urine toxicology positive for marijuana. Review of Systems Pertinent positives and negatives as discussed in HPI, a complete review of systems was performed and all other systems are negative. Past Medical History Additional Past Medical History / Comment(s): scoliosis History of Any Multi-Drug Resistant Organisms: None Reported Past Surgical History: No Surgical Hx Reported Past Anesthesia/Blood Transfusion Reactions: No Reported Reaction Past Psychological History: Anxiety, Depression, PTSD Smoking Status: Vaper Past Alcohol Use History: Daily Past Drug Use History: Marijuana - Past Family History Father History Unknown: Yes Medications and Allergies Home Medications Medication Instructions Recorded Confirmed Type No Known Home Medications 04/06/20 04/06/20 History Allergies Allergy/AdvReac Type Severity Reaction Status Date / Time Bleach (Sodium Hypochlorite) Allergy Rash/Hives Verified 04/06/20 21:26 Physical Exam Vitals: Vital Signs Temp Pulse Pulse Resp BP BP Pulse Ox 04/07/20 00:39 98.2 F 69 16 137/78 98 04/06/20 23:15 98.0 F 82 18 98 04/06/20 22:33 98.1 F 69 18 135/79 98 04/06/20 20:28 16 04/06/20 19:29 99.0 F 95 20 148/93 99 Intake and Output 04/06/20 04/06/20 04/07/20 14:59 22:59 06:59 Other: Weight 54.431 kg 59.9 kg General: non toxic, no distress, appears at stated age, normal weight Derm: no unusual rashes/lesions no unusual ecchymoses, warm, dry Head: atraumatic, normocephalic, symmetric Eyes: EOMI, no lid lag, anicteric sclera, pupils equal round reactive to light ENT: Nose and ears atraumatic, no thrush, no pharyngeal erythema Neck: No thyromegaly, no cervical lymphadenopathy, trachea midline, supple Mouth: no lip lesion, mucus membranes moist Cardiovascular: S1S2 reg, no murmur, positive posterior tibial pulse bilateral, no edema, capillary refill less than 2 seconds Lungs: CTA bilateral, no rhonchi, no rales , no accessory muscle use Abdominal: soft, nontender to palpation, no guarding, no appreciable organomegaly, normal bowel sounds Ext: Forearm dressings in place, clean and dry, no gross muscle atrophy, muscle strength 5 out of 5 in all 4 extremities grossly, no contractures, Neuro: CN II-XI grossly intact, light touch intact all 4 extremities, finger to nose within normal limits, Psych: Alert, oriented, depressed affect Results Labs: Abnormal Lab Results - Last 24 Hours (Table) 04/06/20 Range/Units 20:35 U Marijuana (THC) Screen Detected H (NotDetected) Assessment and Plan Plan: Depression with suicidal ideation -As per psychiatry Forearm lacerations status post sutures -Wound care Marijuana abuse -Advised on the importance of cessation Thank you for allowing us to participate in the care of this patient. We will follow peripherally. Do not hesitate to contact us with questions. Someone can be reached from the [facility] hospitalist group at all hours of the day at [phone].
[2020-04-07 06:20] LABS: Basophils % (A) 0 %; Eosinophils # (A) 0.2 k/uL (0-0.7); Eosinophils % (A) 2 %; HCT 41.3 % (34.0-46.0); HGB 13.6 gm/dL (11.4-16.0); Lymphocytes # (A) 2.3 k/uL (1.0-4.8); Lymphocytes % (A) 28 %; MCH 31.6 pg (25.0-35.0); MCV 95.7 fL (80.0-100.0); Mean Platelet Volume 8.5; Monocytes # (A) 0.4 k/uL (0-1.0); Monocytes % (A) 5 %; Neutrophils # (A) 5.3 k/uL (1.3-7.7); Neutrophils % (A) 64 %; Platelet Count 207 k/uL (150-450); RBC 4.32 m/uL (3.80-5.40); RDW 12.6 % (11.5-15.5); WBC 8.4 k/uL (3.8-10.6)
[2020-04-07 06:32] LABS: ALT 11 U/L (4-34); AST 23 U/L (14-36); African American GFR (CKD) >90 (>60 ml/min/1.73 sqM); Albumin 4.4 g/dL (3.5-5.0); Alkaline Phosphatase 77 U/L (38-126); Anion Gap 7 mmol/L; Blood Urea Nitrogen 15 mg/dL (7-17); Carbon Dioxide 22 mmol/L (22-30); Chloride 110 mmol/L (98-107); Cholesterol 157 mg/dL (<200); Glucose 81 mg/dL (74-99); HDL Cholesterol 92 mg/dL (40-60); LDL Cholesterol,Calculated 56 mg/dL (0-99); Non-African American GFR(CKD) >90 (>60 ml/min/1.73 sqM); Potassium 3.8 mmol/L (3.5-5.1); Sodium 139 mmol/L (137-145); Total Bilirubin 0.7 mg/dL (0.2-1.3); Total Protein 7.2 g/dL (6.3-8.2); Triglycerides 43 mg/dL (<150)
[2020-04-07] MEDS: NICOTINE 14MG/24HR PATCH TRANSDERM SCH (10:45)
[2020-04-07] MEDS: LORazepam 1 MG TAB PO PRN ×2 (10:46→21:04)
[2020-04-07 13:48] LABS: Hemoglobin A1C 4.9 % (4.0-6.0)
--- NOTE | 2020-04-07 15:41 | P.HP ---
Psychiatric H&P - . H&P Date: 04/07/20 History & Physical: Allergies Allergy/AdvReac Type Severity Reaction Status Date / Time Bleach (Sodium Hypochlorite) Allergy Rash/Hives Verified 04/06/20 21:26 Vital Signs Temp 98.0 F 04/07/20 10:49 Pulse 65 04/07/20 10:49 Resp 16 04/07/20 10:49 BP 125/77 04/07/20 10:49 Pulse Ox 99 04/07/20 10:49 Intake & Output 04/06/20 04/07/20 04/07/20 18:59 06:59 18:59 Weight 59.9 kg Laboratory Last Values WBC 8.4 k/uL (3.8-10.6) 04/07/20 06:00 RBC 4.32 m/uL (3.80-5.40) 04/07/20 06:00 Hgb 13.6 gm/dL (11.4-16.0) 04/07/20 06:00 Hct 41.3 % (34.0-46.0) 04/07/20 06:00 MCV 95.7 fL (80.0-100.0) 04/07/20 06:00 MCH 31.6 pg (25.0-35.0) 04/07/20 06:00 MCHC 33.0 g/dL (31.0-37.0) 04/07/20 06:00 RDW 12.6 % (11.5-15.5) 04/07/20 06:00 Plt Count 207 k/uL (150-450) 04/07/20 06:00 Neutrophils % 64 % 04/07/20 06:00 Lymphocytes % 28 % 04/07/20 06:00 Monocytes % 5 % 04/07/20 06:00 Eosinophils % 2 % 04/07/20 06:00 Basophils % 0 % 04/07/20 06:00 Neutrophils # 5.3 k/uL (1.3-7.7) 04/07/20 06:00 Lymphocytes # 2.3 k/uL (1.0-4.8) 04/07/20 06:00 Monocytes # 0.4 k/uL (0-1.0) 04/07/20 06:00 Eosinophils # 0.2 k/uL (0-0.7) 04/07/20 06:00 Basophils # 0.0 k/uL (0-0.2) 04/07/20 06:00 Sodium 139 mmol/L (137-145) 04/07/20 06:00 Potassium 3.8 mmol/L (3.5-5.1) 04/07/20 06:00 Chloride 110 mmol/L (98-107) H 04/07/20 06:00 Carbon Dioxide 22 mmol/L (22-30) 04/07/20 06:00 Anion Gap 7 mmol/L 04/07/20 06:00 BUN 15 mg/dL (7-17) 04/07/20 06:00 Creatinine 0.57 mg/dL (0.52-1.04) 04/07/20 06:00 Est GFR (CKD-EPI)AfAm >90 (>60 ml/min/1.73 sqM) 04/07/20 06:00 Est GFR (CKD-EPI)NonAf >90 (>60 ml/min/1.73 sqM) 04/07/20 06:00 Glucose 81 mg/dL (74-99) 04/07/20 06:[address] Glu mg/dL 94 04/07/20 06:00 Hemoglobin A1c 4.9 % (4.0-6.0) 04/07/20 06:00 Calcium 9.0 mg/dL (8.4-10.2) 04/07/20 06:00 Total Bilirubin 0.7 mg/dL (0.2-1.3) 04/07/20 06:00 AST 23 U/L (14-36) 04/07/20 06:00 ALT 11 U/L (4-34) 04/07/20 06:00 Alkaline Phosphatase 77 U/L (38-126) 04/07/20 06:00 Total Protein 7.2 g/dL (6.3-8.2) 04/07/20 06:00 Albumin 4.4 g/dL (3.5-5.0) 04/07/20 06:00 Triglycerides 43 mg/dL (<150) 04/07/20 06:00 Cholesterol 157 mg/dL (<200) 04/07/20 06:00 LDL Cholesterol, Calc 56 mg/dL (0-99) 04/07/20 06:00 HDL Cholesterol 92 mg/dL (40-60) H 04/07/20 06:00 TSH 1.610 mIU/L (0.465-4.680) 04/07/20 06:00 Urine HCG, Qual Not Detected (Not Detectd) 04/06/20 20:42 Urine Opiates Screen Not Detected (NotDetected) 04/06/20 20:35 Ur Oxycodone Screen Not Detected (NotDetected) 04/06/20 20:35 Urine Methadone Screen Not Detected (NotDetected) 04/06/20 20:35 Ur Propoxyphene Screen Not Detected (NotDetected) 04/06/20 20:35 Ur Barbiturates Screen Not Detected (NotDetected) 04/06/20 20:35 U Tricyclic Antidepress Not Detected (NotDetected) 04/06/20 20:35 Ur Phencyclidine Scrn Not Detected (NotDetected) 04/06/20 20:35 Ur Amphetamines Screen Not Detected (NotDetected) 04/06/20 20:35 U Methamphetamines Scrn Not Detected (NotDetected) 04/06/20 20:35 U Benzodiazepines Scrn Not Detected (NotDetected) 04/06/20 20:35 Urine Cocaine Screen Not Detected (NotDetected) 04/06/20 20:35 U Marijuana (THC) Screen Detected (NotDetected) H 04/06/20 20:35 04/07/20 15:34 IDENTIFYING DATA: 20-year-old engaged female patient. HPI: A she admitted to the inpatient psychiatric unit on a voluntary basis with concerns of depression, thoughts of suicide and cut herself. Patient relates that she tried to commit suicide yesterday and slit her wrists. She says she tried to come in about a week ago but everything was full she was not seen in the emergency room and she went home with her fianc. She called the crisis line and made some appointments for next week at [facility] for a phone appointment. She is things got worse yesterday. She says she has the stress of being told that her daughter was fine without her and she felt like it was just easier to do it in terms of having thoughts of harm to herself. She says her fianc called the police and the police picked her up. She does admit to quite a bit of depression lately. She says for the last 2 months about of suicide has been coming and going and she's had very little motivation and low energy. She does state that she needed stitches for her cuts to her wrists. PAST PSYCHIATRIC HISTORY: She has 1 prior suicide attempt which was cutting. She does have a phone appointment next week with [facility]. She has trialed Prozac in the past without benefit. She was started on lorazepam is a 13 year-old for panic attacks which did help her. No current outpatient treatment. She doesn't history of panic attacks and history of being a worrier she says about everything. PMH: Denies ALLERGIES: Bleach MEDICATIONS: Tylenol when necessary, Maalox when necessary, Ativan when necessary, milk of magnesia when necessary, Habitrol patch CHEMICAL DEPENDENCY HISTORY: Relays that she's been using marijuana daily, couple of joints at night for anxiety. She says she typically drinks a few times a week but lately has been increased more daily. Usually she drinks beer and wine but lately has been more on vodka. FAMILY PSYCHIATRIC HISTORY: A cousin with bipolar disorder FAMILY CHEMICAL DEPENDENCY HISTORY: None known at this time SOCIAL HISTORY: She currently lives with her fianc of 2 years relationship and her daughter who is 9 months old. She is close with her daughter she says her ficarlos is her daughter's father. She is still together with her fianc. She relays that she knows that her daughter is being taken care of but she worries about her. MENTAL STATUS EXAM: She is pleasant and cooperative. Her speech is fluent, not rapid or pressured. Thought processes organized. Her mood is described as "sleeping was good." She denies any current thoughts of harm to self or others. She reports that she is glad to be alive only because she has a daughter. No evidence of psychosis or agitation. Cognitively she appears very grossly intact. I do not note any significant memory disturbance or disorientation. Her insight is adequate, judgment shows evidence of recent impairment. STRENGTHS/WEAKNESSES: Strengthsseeking treatment; weaknessescoping skills INTELLECTUAL FUNCTIONING: Average IMPRESSIONS: Major depressive disorder, recurrent; generalized anxiety; rule out cannabis use disorder; rule out alcohol use disorder; history of panic disorder PLAN: Patient will be admitted to the inpatient psychiatric unit on a voluntary basis. She'll be placed on SP 15 minute precautions. Baseline laboratory workup will be done the patient and medical consultation will be ordered. She'll participate in group and activity therapies. We'll initiate Effexor XR 75 mg daily to help with depression and anxiety. We will look into support systems. Estimated length of stay is 3-5 days. Prognosis is guarded.
[2020-04-07] MEDS: VENLAFAXINE HCL ER 75 MG CAP PO SCH (18:03)
[2020-04-08] MEDS: VENLAFAXINE HCL ER 75 MG CAP PO SCH (08:43)
[2020-04-08] MEDS: NICOTINE 14MG/24HR PATCH TRANSDERM SCH (08:43)
[2020-04-08] MEDS: LORazepam 1 MG TAB PO PRN ×2 (10:49→20:48)
--- NOTE | 2020-04-08 17:01 | P.PN ---
Progress Note - Text Progress Note Date: 04/08/20 Interval history: Patient is seen in cross coverage again today. She reports that she feels a little bit jittery with the Effexor and she wonders about making her feel little bit tired but seems to be tolerable and manageable. Her mood is doing better today. She says her fianc's coming to visit [facility]. She states that she feels good about her mom is going to be helping watch the baby. Mental status exam: She is alert and cooperative with the interview. Her speech is fluent, not rapid or pressured. Her mood is improved today. She denies any thoughts of harm to self. She does not voice any thoughts of harming others. No evidence of psychosis or agitation. Plan: Patient be maintained on current psychotropic medication regimen. Continue to monitor for any medication side effects and monitor her ongoing response to treatment. Continue to monitor regarding any thoughts of suicide.
[2020-04-09] MEDS: NICOTINE 14MG/24HR PATCH TRANSDERM SCH (08:51)
[2020-04-09] MEDS: VENLAFAXINE HCL ER 75 MG CAP PO SCH (08:51)
--- NOTE | 2020-04-09 10:52 | P.PN ---
Progress Note - Text Progress Note Date: 04/09/20 Clinical Problems: Unspecified mood disorder rule out bipolar disorder current episode depressed without psychotic features,,alcohol and Cannabis use disorder, cluster B personality disorder Interim history: I reviewed the medical record,and interviewed the patient During interview patient stated that Effexor making her angry ,easily agitated and her mind is racing more than usual, reports lightheaded and having visual hallucinations at night since started Effexor,she talked about her 9 months old daughter and endorses high anxiety ,talked about her suicidal attempt prior to hospitalization "I had 4 shots of Vodka on my birthday and I fellt overwhelmed ,I did cut my both wrists"patient has 3 stitches on right arm and 4 on left arm,she rated her anxiety 10/10,10 being the worst,when asked about depression ,she replied "I am not depressed I am so angry ",she denies any current suicidal ideation in hospital . She endorses racing thoughts and poor sleep RALPH: Alcohol : half bottle of wine daily "To help me to sleep ,I am not alcoholic",Cannabis : "couple of hits at night" Mental status exam: She presented as casually dressed ,fair grooming female who was markedly irritable and angry. She made eye contact and appeared to attend to interview. She had a distressed and angry facial expression. She showed no abnormality of psychomotor activity. His speech was spontaneous and had slightly increase rhythm and volume. Her affect was irritable. . She denies any suicidal intend in hospital She denied homicidal ideation. She expressed having high anxiety . She ruminated about side-effect of medication. She did not express ideas reference, paranoid ideation or delusions. Her thinking was concrete. Associations were coherent and goal directed. She denied hallucinations and did not appear to responding to internal stimuli.Insight and judgment are limited PLAN: Patient was on Prozac during her teens and did not help , Effexor making her angry ,discontinue Effexor and start Lamictal to stabilize her mood Continue safety precautions. Titrate Lamictal to 200 mg daily according to clinical response and tolerance. Ativan and Ahsan NEWSOME ,discussed effect of RALPH on her mental status but patient minimizing her alcohol use Encourage participation in therapeutic groups and activities. Evaluate clinical status response to treatment daily basis.
[2020-04-09] MEDS: LORazepam 1 MG TAB PO PRN (19:08)
[2020-04-09] MEDS: lamoTRIgine 25 MG TAB PO SCH (21:04)
[2020-04-10] MEDS: lamoTRIgine 25 MG TAB PO SCH ×2 (08:29→20:29)
[2020-04-10] MEDS: NICOTINE 14MG/24HR PATCH TRANSDERM SCH (08:29)
[2020-04-10] MEDS: LORazepam 1 MG TAB PO PRN ×2 (09:29→16:23)
--- NOTE | 2020-04-10 10:16 | P.PN ---
Progress Note - Text Progress Note Date: 04/10/20 Interval History: Patient was seen taking part in groups this morning and was directable and agr eeable to speak with freelance writer in the office. Patient appeared to be anxious and her affect however was appropriate and directable during conversation. Patient spoke about her ongoing anxiety during the day and states that she is had bad experiences with antidepressants specifically Effexor in the past. She claims that she feels the Lamictal has been helping stabilize her mood and she believes that she has bipolar disorder. Patient states that she was feeling angry this morning and had poor sleep. Patient was agreeable to start trazodone at nighttime and have her Lamictal increased. She states that she has been going to groups and try to participate as best she can. Patient was focused on discharge today. She has a fair appetite. At this time patient denies any suicidal or homical ideations, intent or plan. Patient denies any auditory, visual hallucinations and denies any paranoia or delusions. Patient denies any side effects from the medications and has been compliant with meds. Mental Status Exam: General Appearance: Patient appears to be thin, stated age is alert, appears anxious yet is cooperative. Improving hygiene and grooming. Behavior: Patient is calmly seated without any agitated behavior. Appears to be anxious. Speech: Patient's speech is fluent and nonpressured. Mood/Affect: Mood is improving mildly, affect is congruent and anxious Suicidality/Homicidality: Patient denies having any suicidal or homicidal ideation intent or plan. Perceptions: Patient denies any visual hallucinations and denies any auditory hallucinations Though content/process: There is no evidence of any delusional thought content and thought process is linear and goal-directed. Focused on discharge and her symptoms. Memory and concentration: AOX3, grossly intact for the purposes of this session Judgment and insight: Improving mildly Assessment Bipolar disorder, currently depressed Anxiety disorder unspecified, rule out panic disorder Cannabis use disorder Alcohol use disorder Nicotine dependence Plan: -Patient continues to meet criteria for inpatient psychiatric admission for symptom stabilization and safety. Patient has signed adult voluntary form and medication consent and was placed in patient's chart. -Medications: Will add trazodone 50 mg daily at bedtime for insomnia/mood, increased Lamictal to 50 mg daily at bedtime +25 mg every morning for mood stabilization/depression. -When necessary Ativan and Geodon for agitation/aggression. -NRT - nicotine patch -SW on board for discharge planning. Encouraged the patient to participate in milieu. We'll continue to speak with patient about discharge planning along with substance use programs upon discharge.
[2020-04-10] MEDS: traZODone HCL 50 MG TAB PO SCH (20:29)
[2020-04-11] MEDS: LORazepam 1 MG TAB PO PRN ×3 (00:24→20:41)
[2020-04-11] MEDS: BACITRACIN ZINC 500 UNIT/GM OINT 28.4 GM TUBE TOPICAL PRN ×2 (01:11→12:05)
[2020-04-11] MEDS: NICOTINE 14MG/24HR PATCH TRANSDERM SCH (08:33)
[2020-04-11] MEDS: lamoTRIgine 25 MG TAB PO SCH ×3 (08:33→20:41)
--- NOTE | 2020-04-11 09:24 | P.PN ---
Progress Note - Text Progress Note Date: 04/11/20 Interval History: Patient was seen wandering the halls this morning was directable and agreeable to speak with check writer in the office. Patient appeared to be anxious and was tearful during conversation. She states that she did not take her morning dose of Lamictal as she was scared that it was making her feel more depressed. She states that her roommate was trying to convince her last night that her daughter was going to commit suicide and patient claims that she was feeling depressed and worried about it and her well-being. She states that she is trying to take care of her family including her mother and boyfriend in the house however feels she cannot do much here on the unit. She claims that her mood is still depressed and she feels anxious. She claims that she had mild improvement in her sleep last night however kidneys have racing thoughts at night. She states that she has been going to groups and try to participate as best she can. She has a fair appetite. At this time patient denies any suicidal or homical ideations, intent or plan. Patient denies any auditory, visual hallucinations and denies any paranoia or delusions. Patient denies any side effects from the medications and has been compliant with meds. Mental Status Exam: General Appearance: Patient appears to be thin, stated age is alert, appears anxious yet is cooperative. Improving hygiene and grooming. Behavior: Patient is calmly seated without any agitated behavior. Appears to be anxious and tearful today. Speech: Patient's speech is fluent and nonpressured. Mood/Affect: Mood is "the same", affect is congruent and anxious and tearful Suicidality/Homicidality: Patient denies having any suicidal or homicidal ideation intent or plan. Perceptions: Patient denies any visual hallucinations and denies any auditory hallucinations Though content/process: There is no evidence of any delusional thought content and thought process is linear and goal-directed. Focused on medications and her symptoms. Memory and concentration: AOX3, grossly intact for the purposes of this session Judgment and insight: Improving mildly Assessment Bipolar disorder, currently depressed Anxiety disorder unspecified, rule out panic disorder Cannabis use disorder Alcohol use disorder Nicotine dependence Plan: -Patient continues to meet criteria for inpatient psychiatric admission for symptom stabilization and safety. Patient has signed adult voluntary form and medication consent and was placed in patient's chart. -Medications: Will continue with trazodone 50 mg daily at bedtime for insomnia/mood, increased Lamictal to 50 mg BID for mood stabilization/depression. Added Seroquel 25 mg twice a day for mood stabilization -When necessary Ativan and Geodon for agitation/aggression. -NRT - nicotine patch -SW on board for discharge planning. Encouraged the patient to participate in milieu. We'll continue to speak with patient about discharge planning along with substance use programs upon discharge.
[2020-04-11] MEDS: QUEtiapine 25 MG TAB PO SCH ×2 (10:06→20:41)
--- NOTE | 2020-04-11 16:44 | P.PN ---
Subjective Progress Note Date: 04/11/20 Principal diagnosis: arm laceration Patient is a 20-year-old female with a history of scoliosis and depression who presented to the ER with suicidal ideation. She had multiple forearm lacerations. I was asked to evaluate the patient regarding suture removal. Patient seen and examined at bedside. She denies any redness, pain, or drainage from her bilateral forearm lacerations. She does state they've been itching. She has never had sutures before. She states that she didn't use a dull blade that she is unsure if was clean to cut her arms. She feels very tired today. She states she cannot control her crying. She is feeling slightly overmedicated. She expresses frustrations about not knowing when she'll be discharged from the mental health unit. Objective - Vital Signs Vital signs: Vital Signs Temp 97.7 F 04/11/20 06:39 Pulse 86 04/11/20 06:39 Resp 17 04/11/20 06:39 BP 96/56 04/11/20 06:39 Pulse Ox 100 04/11/20 06:39 - Exam General: non toxic, no distress, appears at stated age Derm: 3 sutures removed from right forearm, skin well-healed with good approximation, no warmth, erythema, or drainage noted 4 sutures removed from left forearm, Steri-Strips applied, mild erythema without warmth or drainage, mild bruising Head: atraumatic, normocephalic, symmetric Eyes: EOMI, no lid lag, anicteric sclera s] Neuro: CN II-XI grossly intact, no focal neuro deficits Psych: Alert, oriented, upset, crying, frustrated - Labs CBC & Chem 7: 04/07/20 06:00 04/07/20 06:00 Assessment and Plan Assessment: Bilateral self-induced forearm laceration -Removal of 3 sutures in the right forearm, and 4 sutures from the left arm with placement of Steri-Strips, covered with nonstick dressing -Nursing to monitor for signs or symptoms of infection every 24 hours and change dressing-patient instructed to leave Steri-Strips in place and allow them to fall off naturally - received tdap in the ED Depression -Your psych management Thank you for allowing us to participate in the care of this pleasant patient. Do not hesitate to contact us with questions. Someone can be reached from the [facility] hospitalist group all hours of the day at [phone] or via [employer].
[2020-04-11] MEDS: traZODone HCL 50 MG TAB PO SCH (20:42)
[2020-04-12 05:55] VITALS: BP 102/52; PULSE 78; RESP 14
[2020-04-12] MEDS: NICOTINE 14MG/24HR PATCH TRANSDERM SCH (08:25)
[2020-04-12] MEDS: lamoTRIgine 25 MG TAB PO SCH ×2 (08:26→20:15)
[2020-04-12] MEDS: QUEtiapine 25 MG TAB PO SCH ×2 (08:26→20:15)
[2020-04-12] MEDS: BACITRACIN ZINC 500 UNIT/GM OINT 28.4 GM TUBE TOPICAL PRN (08:58)
--- NOTE | 2020-04-12 10:33 | P.PN ---
Progress Note - Text Progress Note Date: 04/12/20 Interval History: Patient was seen taking part in group this morning was directable and agreeable to speak with senior copywriter in the office. Patient appeared to be less anxious and tearful today however was complaining of significant sedation during the day. She states that "I can't stay awake and a need to be able to hear my baby at nighttime". Patient claims that her mood has been gradually stabilizing however continues to endorse some depression. She states that she is feeling more hopeful about her medications however felt that she was "confused about all the meds". Surveillance System Monitor explained the medications and patient's diagnosis along with the side effects. She states that she was able to sleep better last night throughout the night. She states that she has been going to groups and try to participate as best she can. She has a fair appetite. At this time patient denies any suicidal or homical ideations, intent or plan. Patient denies any auditory, visual hallucinations and denies any paranoia or delusions. Patient denies any side effects from the medications and has been compliant with meds. Mental Status Exam: General Appearance: Patient appears to be thin, stated age is alert, appears less anxious yet is cooperative. Improving hygiene and grooming. Behavior: Patient is calmly seated without any agitated behavior. Less anxious today and less tearful. Speech: Patient's speech is fluent and nonpressured. Mood/Affect: Mood is "better", affect is congruent and less anxious and tearful today. Suicidality/Homicidality: Patient denies having any suicidal or homicidal ideation intent or plan. Perceptions: Patient denies any visual hallucinations and denies any auditory hallucinations Though content/process: There is no evidence of any delusional thought content and thought process is linear and goal-directed. Focused on medications and her symptoms. Memory and concentration: AOX3, grossly intact for the purposes of this session Judgment and insight: Improving mildly Assessment Bipolar disorder, currently depressed Anxiety disorder unspecified, rule out panic disorder Cannabis use disorder Alcohol use disorder Nicotine dependence Plan: -Patient continues to meet criteria for inpatient psychiatric admission for symptom stabilization and safety. Patient has signed adult voluntary form and medication consent and was placed in patient's chart. -Medications: Will discontinue trazodone at this time due to oversedation, continue with Lamictal to 50 mg BID for mood stabilization/depression. Continue with Seroquel 25 mg twice a day for mood stabilization -When necessary Ativan and Geodon for agitation/aggression. -NRT - nicotine patch -SW on board for discharge planning. Encouraged the patient to participate in milieu. We'll continue to speak with patient about discharge planning along with substance use programs upon discharge. Likely discharge early next week back home.
[2020-04-12 13:09] VITALS: BMI 24.1
[2020-04-12 19:13] VITALS: TEMP 98.8
[2020-04-12] MEDS: LORazepam 1 MG TAB PO PRN (21:00)
[2020-04-13] MEDS: lamoTRIgine 25 MG TAB PO SCH (08:52)
[2020-04-13] MEDS: QUEtiapine 25 MG TAB PO SCH (08:52)
[2020-04-13] MEDS: NICOTINE 14MG/24HR PATCH TRANSDERM SCH (08:52)
[2020-04-13] MEDS: BACITRACIN ZINC 500 UNIT/GM OINT 28.4 GM TUBE TOPICAL PRN (08:54)
--- NOTE | 2020-04-13 11:14 | P.DS ---
Providers Date of admission: 04/06/20 22:48 Expected date of discharge: 04/13/20 Attending physician: Eleazar Ibrahim MD Consults: 04/06/20 23:04 Consult Physician Routine Consulting Provider: Luis Bonilla Consult Reason/Comments: medical management Do you want consulting provider notified?: Yes Primary care physician: Stated None - Discharge Diagnosis(es) (1) Bipolar disorder current episode depressed Current Visit: Yes Status: Acute Priority: High (2) Anxiety disorder Current Visit: Yes Status: Acute Priority: Medium (3) Cannabis use disorder, mild, abuse Current Visit: Yes Status: Acute Priority: Medium (4) Alcohol use disorder Current Visit: Yes Status: Acute Priority: Medium (5) Nicotine dependence Current Visit: Yes Status: Acute Priority: Low Hospital Course: Admission HPI: Admission was completed by Dr. Ramirez "Patient is a 20-year-old engaged female patient. A she admitted to the inpatient psychiatric unit on a voluntary basis with concerns of depression, thoughts of suicide and cut herself. Patient relates that she tried to commit suicide yesterday and slit her wrists. She says she tried to come in about a week ago but everything was full she was not seen in the emergency room and she went home with her fianc. She called the crisis line and made some appointments for next week at [facility] for a phone appointment. She is things got worse yesterday. She says she has the stress of being told that her daughter was fine without her and she felt like it was just easier to do it in terms of having thoughts of harm to herself. She says her fianc called the police and the police picked her up. She does admit to quite a bit of depression lately. She says for the last 2 months about of suicide has been coming and going and she's had very little motivation and low energy. She does state that she needed stitches for her cuts to her wrists. PAST PSYCHIATRIC HISTORY: She has 1 prior suicide attempt which was cutting. She does have a phone appointment next week with [facility]. She has trialed Prozac in the past without benefit. She was started on lorazepam is a 13 year-old for panic attacks which did help her. No current outpatient treatment. She doesn't history of panic attacks and history of being a worrier she says about e verything." Hospital course: Upon admission to the unit patient was initially labile, tearful and having thoughts of suicide. Patient was however directable and agreeable to commence treatment. Patient got along well with other patients on the unit and followed unit protocol. Patient was compliant with the medications throughout hospital course. Patient did become somewhat sedated at times with her medications however after the trazodone dose was discontinued patient did not complain of any more sedation. Patient was started on Seroquel and increased to a dose of 25 mg twice a day for mood stabilization/depression, Lamictal increased to a dose of 50 mg twice a day for mood stabilization/depression. Trazodone was discontinued due to over sedation. Patient spoke of her stressors and engaged in therapy both group and individual. Patient was also seen by medical team for history and physical exam. Throughout the course of the hospitalization patient gradually improved with regards to mood lability, anxiety, suicidal thoughts, sleep and became future oriented with improved insight and judgment. On the day of discharge patient denied any suicidal or homicidal ideations intent or plan denied any auditory or visual hallucinations. Patient endorsed wanting to live for and her family and her future. The patient denied any access to guns or weapons. Patient denied any paranoia and did not endorse any delusions. Patient does have a significant history of substance abuse and was counseled on abstaining from all substances including alcohol and marijuana. Patient was offered however declined inpatient substance-abuse rehab. Patient was also counseled on the medications and need for regular compliance and was encouraged to follow-up with their outpatient appointment for mental health and also for primary care. Prior to discharge a family meeting will be arranged by marriage and family social worker to answer any questions and ensure safety upon discharge. Patient's mother agreed that patient can go and stay with her upon discharge. Mental status exam: General Appearance: Patient appears to be short in stature, stated age is alert, pleasant, and attempts to be cooperative. Patient is in no acute distress and has fair hygiene and grooming Behavior: Patient is calmly seated without any agitated behavior. Attempts to be cooperative. Speech: Patient's speech is fluent and nonpressured. Mood/Affect: Patient reports their mood is "better", affect is congruent and euthymic. Suicidality/Homicidality: Patient denies having any suicidal or homicidal ideation intent or plan. Perceptions: Patient denies any auditory or visual hallucinations. Though content/process: There is no evidence of any delusional thought content and thought process is linear and goal-directed. more future oriented Memory and concentration: AOX3, grossly intact for the purposes of this session. Can spell "WORLD" backwards correctly. Judgment and insight: Improved with guarded prognosis Impression: Bipolar disorder, currently depressed episode Anxiety disorder unspecified, rule out panic disorder Cannabis use disorder Alcohol use assertive Nicotine dependence Plan: -Continue with discharge today as patient has improved and stabilized psychiatrically and is not currently an imminent threat to herself and/or others. Patient will remain at chronically elevated risk for harm to self and/or others due to her impulsivity and polysubstance abuse. -Continue medications: Continue with Seroquel 25 mg twice a day for mood stabilization/depression, Lamictal 50 mg twice a day for mood stabilization /depression. Product Scientist discussed end up with patient about the side effects of both medications including rash and potential weight gain/metabolic side effects and patient agreed to monitor for these potential side effects and understood. -Patient was counseled on the need for medication compliance and appropriate follow-up at mental health and also primary care for medical issues. Patient verbalized understanding and agreed. -Social work to arrange for and conduct family meeting to ensure safety upon discharge and answer any questions/concerns. Patient's mother agreed that patient can go and stay with her upon discharge. -Social work also to arrange for patients follow up appointments for psychiatric care at [facility] along with follow up with primary care provider. -Patient counseled on abstaining from recreational drugs and marijuana and alcohol. Was informed/educated on the adverse effects on their physical and mental health. Patient verbally agreed and understood. Patient was offered fuller bstance abuse treatment however declined at this time. -Patient was instructed to return to the hospital or seek immediate medical care if their psychiatric or medical symptoms do worsen or reoccur. Allergies Allergy/AdvReac Type Severity Reaction Status Date / Time Bleach (Sodium Hypochlorite) Allergy Rash/Hives Verified 04/06/20 21:26 Laboratory Results WBC 8.4 k/uL (3.8-10.6) 04/07/20 06:00 RBC 4.32 m/uL (3.80-5.40) 04/07/20 06:00 Hgb 13.6 gm/dL (11.4-16.0) 04/07/20 06:00 Hct 41.3 % (34.0-46.0) 04/07/20 06:00 MCV 95.7 fL (80.0-100.0) 04/07/20 06:00 MCH 31.6 pg (25.0-35.0) 04/07/20 06:00 MCHC 33.0 g/dL (31.0-37.0) 04/07/20 06:00 RDW 12.6 % (11.5-15.5) 04/07/20 06:00 Plt Count 207 k/uL (150-450) 04/07/20 06:00 Neutrophils % 64 % 04/07/20 06:00 Lymphocytes % 28 % 04/07/20 06:00 Monocytes % 5 % 04/07/20 06:00 Eosinophils % 2 % 04/07/20 06:00 Basophils % 0 % 04/07/20 06:00 Neutrophils # 5.3 k/uL (1.3-7.7) 04/07/20 06:00 Lymphocytes # 2.3 k/uL (1.0-4.8) 04/07/20 06:00 Monocytes # 0.4 k/uL (0-1.0) 04/07/20 06:00 Eosinophils # 0.2 k/uL (0-0.7) 04/07/20 06:00 Basophils # 0.0 k/uL (0-0.2) 04/07/20 06:00 Sodium 139 mmol/L (137-145) 04/07/20 06:00 Potassium 3.8 mmol/L (3.5-5.1) 04/07/20 06:00 Chloride 110 mmol/L (98-107) H 04/07/20 06:00 Carbon Dioxide 22 mmol/L (22-30) 04/07/20 06:00 Anion Gap 7 mmol/L 04/07/20 06:00 BUN 15 mg/dL (7-17) 04/07/20 06:00 Creatinine 0.57 mg/dL (0.52-1.04) 04/07/20 06:00 Est GFR (CKD-EPI)AfAm >90 (>60 ml/min/1.73 sqM) 04/07/20 06:00 Est GFR (CKD-EPI)NonAf >90 (>60 ml/min/1.73 sqM) 04/07/20 06:00 Glucose 81 mg/dL (74-99) 04/07/20 06:[address] Glu mg/dL 94 04/07/20 06:00 Hemoglobin A1c 4.9 % (4.0-6.0) 04/07/20 06:00 Calcium 9.0 mg/dL (8.4-10.2) 04/07/20 06:00 Total Bilirubin 0.7 mg/dL (0.2-1.3) 04/07/20 06:00 AST 23 U/L (14-36) 04/07/20 06:00 ALT 11 U/L (4-34) 04/07/20 06:00 Alkaline Phosphatase 77 U/L (38-126) 04/07/20 06:00 Total Protein 7.2 g/dL (6.3-8.2) 04/07/20 06:00 Albumin 4.4 g/dL (3.5-5.0) 04/07/20 06:00 Triglycerides 43 mg/dL (<150) 04/07/20 06:00 Cholesterol 157 mg/dL (<200) 04/07/20 06:00 LDL Cholesterol, Calc 56 mg/dL (0-99) 04/07/20 06:00 HDL Cholesterol 92 mg/dL (40-60) H 04/07/20 06:00 TSH 1.610 mIU/L (0.465-4.680) 04/07/20 06:00 Urine HCG, Qual Not Detected (Not Detectd) 04/06/20 20:42 Urine Opiates Screen Not Detected (NotDetected) 04/06/20 20:35 Ur Oxycodone Screen Not Detected (NotDetected) 04/06/20 20:35 Urine Methadone Screen Not Detected (NotDetected) 04/06/20 20:35 Ur Propoxyphene Screen Not Detected (NotDetected) 04/06/20 20:35 Ur Barbiturates Screen Not Detected (NotDetected) 04/06/20 20:35 U Tricyclic Antidepress Not Detected (NotDetected) 04/06/20 20:35 Ur Phencyclidine Scrn Not Detected (NotDetected) 04/06/20 20:35 Ur Amphetamines Screen Not Detected (NotDetected) 04/06/20 20:35 U Methamphetamines Scrn Not Detected (NotDetected) 04/06/20 20:35 U Benzodiazepines Scrn Not Detected (NotDetected) 04/06/20 20:35 Urine Cocaine Screen Not Detected (NotDetected) 04/06/20 20:35 U Marijuana (THC) Screen Detected (NotDetected) H 04/06/20 20:35 Vital Signs Temp 98.8 F 04/12/20 19:12 Pulse 78 04/12/20 05:55 Resp 14 04/12/20 05:55 BP 102/52 04/12/20 05:55 Pulse Ox 100 04/11/20 06:39 Intake & Output 04/12/20 04/13/20 04/13/20 18:59 06:59 18:59 Weight 59.9 kg Patient Condition at Discharge: Stable Plan - Discharge Summary New Discharge Prescriptions: New Bacitracin Zinc Oint 1 applic TOPICAL BID PRN #1 applic PRN Reason: Skin Irritation Nicotine 14Mg/24Hr Patch [Habitrol] 1 patch TRANSDERM DAILY 14 Days patch lamoTRIgine [LaMICtal] 50 mg PO BID 30 Days tab QUEtiapine [SEROquel] 25 mg PO BID 30 Days tab Acetaminophen Tab [Tylenol] 650 mg PO Q4HR PRN tab PRN Reason: Pain/Discomfort Discharge Medication List Acetaminophen Tab [Tylenol] 650 mg PO Q4HR PRN tab 04/13/20 [Rx] Bacitracin Zinc Oint 1 applic TOPICAL BID PRN #1 applic 04/13/20 [Rx] Nicotine 14Mg/24Hr Patch [Habitrol] 1 patch TRANSDERM DAILY 14 Days patch 04/13/20 [Rx] QUEtiapine [SEROquel] 25 mg PO BID 30 Days tab 04/13/20 [Rx] lamoTRIgine [LaMICtal] 50 mg PO BID 30 Days tab 04/13/20 [Rx] Follow up Appointment(s)/Referral(s): [facility] [Outside] - 04/13/20 1:00 pm (04/13/20 at 1 pm with Dennise Sifuentes by phone 04/18/[address] at [address] Shasha Nolasco at [facility] office) None,Stated [Primary Care Provider] - 1-2 days Activity/Diet/Wound Care/Special Instructions: Activity and diet as tolerated. Avoid the use of street drugs and alcohol. Take all medications as prescribed. When you are in need of refills on your medications please contact your medical provider and/or outpatient psychiatrist to have this done. Please go to scheduled outpatient appointment for aftercare treatment. If symptoms return or become worse, call the crisis line at and/or go to the nearest emergency room for evaluation Discharge Disposition: HOME SELF-CARE
[2020-04-13] MEDS: LORazepam 1 MG TAB PO PRN (12:27)
== END 2020-04-13 14:00 | disposition home or self-care (01) | DRG 885 ==
LOC: EC 19:25 → 3MHU 22:48
PROVIDERS: ADMIT Psychiatry & Neurology Psychiatry; ATTEND Psychiatry & Neurology Psychiatry
PROC: 0HQEXZZ Repair Left Lower Arm Skin, External Approach (ICD-10-PCS; principal; 2020-04-06)
PROC: 0HQDXZZ Repair Right Lower Arm Skin, External Approach (ICD-10-PCS; principal; 2020-04-06)
PROC: 3E0234Z Introduction of Serum, Toxoid and Vaccine into Muscle, Percutaneous Approach (ICD-10-PCS; principal; 2020-04-06)
DX: F31.30 Bipolar disorder, current episode depressed, mild or moderate severity, unspecified (principal); R45.851 Suicidal ideations; F60.89 Other specific personality disorders; X78.9XXA Intentional self-harm by unspecified sharp object, initial encounter; S61.512A Laceration without foreign body of left wrist, initial encounter; S51.811A Laceration without foreign body of right forearm, initial encounter; M41.9 Scoliosis, unspecified; F43.10 Post-traumatic stress disorder, unspecified; F41.0 Panic disorder [episodic paroxysmal anxiety]; F41.1 Generalized anxiety disorder; F17.290 Nicotine dependence, other tobacco product, uncomplicated; F12.10 Cannabis abuse, uncomplicated; F10.10 Alcohol abuse, uncomplicated; G47.00 Insomnia, unspecified; R45.87 Impulsiveness; Z23 Encounter for immunization; Z91.048 Other nonmedicinal substance allergy status; Z91.5 Personal history of self-harm; Z81.8 Family history of other mental and behavioral disorders
CPT/HCPCS: 12002; 80053; 80061; 80306; 81025; 82075; 83036; 84443; 85025; 90471; 90715; 99285

== ENCOUNTER 2020-08-01 13:48 | Emergency (ER) | payer OTHER ==
--- NOTE | 2020-08-01 15:08 | XR ---
EXAMINATION TYPE: XR foot complete RT DATE OF EXAM: 08/01/2020 COMPARISON: NONE HISTORY: 20-year-old female right foot pain after injury TECHNIQUE: 3 views FINDINGS: There are nondisplaced transverse fractures across the second through fourth metatarsal bas e just beyond the intermetatarsal joints. No evidence of malalignment. IMPRESSION: Nondisplaced transverse fractures through the second through fourth metatarsal bases just beyond the level of the intermetatarsal joints.
[2020-08-01] MEDS ORDERED: Acetaminophen-Codeine 300-30mg TAB PO STA (15:43)
[2020-08-01] MEDS ORDERED: ACET/COD 300 MG/30 MG STARTER PACK 6 TAB BTL PO STA (15:43)
--- NOTE | 2020-08-01 16:00 | ED ---
Lower Extremity Injury HPI - General Chief Complaint: Extremity Injury, Lower Stated Complaint: right foot pain Time Seen by Provider: 08/01/20 15:33 Source: patient Mode of arrival: ambulatory Limitations: no limitations - History of Present Illness Initial Comments: 20-year-old female presenting to emergency Department with a chief complaint of right foot pain. Patient states the incident occurred last night when she was walking and stepped on a small toy. Patient reports she has since developed some mild swelling on the mid foot. She also reports mild region of ecchymosis on the dorsal aspect of the foot. She states she Walking throughout the whole down the foot but did not take any medication for it. Denies any numbness or tingling. States the pain exacerbated with ventilation and alleviated at rest. - Related Data Home Medications Medication Instructions Recorded Confirmed lamoTRIgine [LaMICtal] 100 mg PO BID 08/01/20 08/01/20 Allergies Allergy/AdvReac Type Severity Reaction Status Date / Time Bleach (Sodium Hypochlorite) Allergy Rash/Hives Verified 08/01/20 16:10 Review of Systems ROS Statement: Those systems with pertinent positive or pertinent negative responses have been documented in the HPI. ROS Other: All systems not noted in ROS Statement are negative. Past Medical History Additional Past Medical History / Comment(s): scoliosis, History of Any Multi-Drug Resistant Organisms: None Reported Past Surgical History: No Surgical Hx Reported Past Anesthesia/Blood Transfusion Reactions: No Reported Reaction Past Psychological History: Anxiety, Depression, PTSD Smoking Status: Current every day smoker, Vaper Past Alcohol Use History: Occasional Past Drug Use History: Marijuana - Past Family History Father History Unknown: Yes General Exam Limitations: no limitations General appearance: alert, in no apparent distress Head exam: Present: atraumatic, normocephalic, normal inspection Eye exam: Present: normal appearance, PERRL, EOMI Pupils: Present: normal accommodation ENT exam: Present: normal exam, normal oropharynx, mucous membranes moist, TM's normal bilaterally, normal external ear exam Neck exam: Present: normal inspection, tenderness, full ROM Respiratory exam: Present: normal lung sounds bilaterally. Absent: respiratory distress, wheezes, rales Cardiovascular Exam: Present: regular rate, normal rhythm, normal heart sounds. Absent: bradycardia, tachycardia, irregular rhythm, systolic murmur GI/Abdominal exam: Present: soft. Absent: distended, tenderness, guarding, rebound Extremities exam: Present: full ROM, tenderness (Midfoot tenderness), normal capillary refill, other (+2 ulnar radial pulses bilateral. Posterior dorsalis pedis and posterior tibials bilateral.). Absent: normal inspection (Mild region of ecchymosis in the ventral aspect of her right foot.), pedal edema, joint swelling, calf tenderness Back exam: Present: normal inspection, full ROM. Absent: tenderness, CVA tenderness (R), CVA tenderness (L) Neurological exam: Present: alert, oriented X3, normal gait Psychiatric exam: Present: normal affect, normal mood. Absent: depressed, agitated Skin exam: Present: warm, dry, intact, normal color Course Vital Signs 08/01/20 14:15 Temperature 97.7 F Pulse Rate 78 Respiratory 16 Rate Blood Pressure 114/77 O2 Sat by Pulse 99 Oximetry Procedures - Orthopedic Splinting/Casting Injury #1 Side: right Lower Extremity Injury Location: short leg Lower Extremity Immobilizer: posterior splint, Justen wrap, synthetic pre-padded splint Other Orthopedic Equipment: crutches Medical Decision Making - Medical Decision Making 20-year-old female presenting to emergency department with chief complaint of right foot injury. Physical examination, she does have mild region of ecchymosis and swelling. X-ray of the right foot reveals second third and fourth metatarsal fracture at the base. This is a nondisplaced fracture without any joint dislocations. I spoke with FELIPA navarro who advised splinting and they will see the patient tomorrow in office. Give the patient contact information for Dr. No. Patient was given Tylenol 3 per her request. She will be discharged with a Tylenol 3 starter pack. Advised not to drive or operative machinery taking medication. Return parameters to discussed the patient is an attending ago. She is neurovascularly intact in the right [place]. Case discussed with physician. Disposition Clinical Impression: Fracture of second metatarsal bone of right foot, Fracture of third metatarsal bone of right foot, Fracture of fourth metatarsal bone of right foot, Foot fracture, right Disposition: HOME SELF-CARE Condition: Stable Additional Instructions: Follow-up with Dr. No. Take prescribed medication as directed. Return to emergency department if symptoms worsen. Alternate between Tylenol and Motrin for pain control. Is patient prescribed a controlled substance at d/c from ED?: No Referrals: None,Stated [Primary Care Provider] - 1-2 days Triston Shelley, PAC [PHYSICIAN LICENSED NUCLEAR OPERATOR] - 1-2 days Time of Disposition: 16:42
[2020-08-01 16:54] VITALS: BP 111/80; PULSE 81; RESP 18; TEMP 97.8
== END 2020-08-01 16:53 | disposition home or self-care (01) ==
LOC: EC 13:48
DX: S92.324A Nondisplaced fracture of second metatarsal bone, right foot, initial encounter for closed fracture (principal); S92.334A Nondisplaced fracture of third metatarsal bone, right foot, initial encounter for closed fracture; S92.344A Nondisplaced fracture of fourth metatarsal bone, right foot, initial encounter for closed fracture; S90.31XA Contusion of right foot, initial encounter; F41.9 Anxiety disorder, unspecified; F32.9 Major depressive disorder, single episode, unspecified; F17.290 Nicotine dependence, other tobacco product, uncomplicated; Z79.899 Other long term (current) drug therapy; Z91.048 Other nonmedicinal substance allergy status; W22.8XXA Striking against or struck by other objects, initial encounter
CPT/HCPCS: 29515; 99283

== ENCOUNTER → 2020-08-08 | Outpatient (CLI) | payer OTHER ==
--- NOTE | 2020-08-08 15:53 | CT ---
EXAMINATION TYPE: CT foot RT wo con DATE OF EXAM: 08/08/2020 COMPARISON: Right foot 08/01/2020 HISTORY: right foot pain post fall CT DLP: 161.2 mGycm Automated exposure control for dose reduction was used. FINDINGS: Nondisplaced transverse fractures of the proximal metaphyseal second third and fourth metatarsals are present. Correlate for Lisfranc fracture. Soft tissues appear normal. IMPRESSION: NONDISPLACED SECOND THROUGH FOURTH PROXIMAL METAPHYSEAL METATARSAL FRACTURES
== END | disposition home or self-care (01) ==
LOC: RADCTMAIN 11:17
PROVIDERS: ATTEND Orthopaedic Surgery
DX: S92.344A Nondisplaced fracture of fourth metatarsal bone, right foot, initial encounter for closed fracture (principal)

== ENCOUNTER 2021-01-31 10:04 | Emergency (ER) | payer OTHER ==
[2021-01-31 10:12] VITALS: RESP 18
--- NOTE | 2021-01-31 11:24 | ED ---
Psych HPI - General Chief Complaint: Psychiatric Symptoms Stated Complaint: Mental Health Time Seen by Provider: 01/31/21 10:15 Source: patient, RN notes reviewed Mode of arrival: ambulatory Limitations: no limitations - History of Present Illness Initial Comments: 20-year-old female presents emergency Department chief complaint of needing psychiatric help. Patient states that she's been hearing voices. Patient does have history of bipolar disorder is not on current medications. She does admit to recent methamphetamine use. Patient denies being suicidal. Patient denies any fevers or chills. Patient denies any homicidal. - Related Data Home Medications Medication Instructions Recorded Confirmed No Known Home Medications 01/31/21 01/31/21 Allergies Allergy/AdvReac Type Severity Reaction Status Date / Time Bleach (Sodium Hypochlorite) Allergy Rash/Hives Verified 01/31/21 11:30 Review of Systems ROS Statement: Those systems with pertinent positive or pertinent negative responses have been documented in the HPI. ROS Other: All systems not noted in ROS Statement are negative. Past Medical History Additional Past Medical History / Comment(s): scoliosis, History of Any Multi-Drug Resistant Organisms: None Reported Past Surgical History: No Surgical Hx Reported Past Anesthesia/Blood Transfusion Reactions: No Reported Reaction Past Psychological History: Anxiety, Depression, PTSD Smoking Status: Current every day smoker, Vaper Past Alcohol Use History: Abuse, Daily Past Drug Use History: Methamphetamine - Past Family History Father History Unknown: Yes General Exam Limitations: no limitations General appearance: alert, in no apparent distress Eye exam: Present: normal appearance, PERRL, EOMI. Absent: scleral icterus, conjunctival injection, periorbital swelling ENT exam: Present: normal exam, normal oropharynx, mucous membranes moist Neck exam: Present: normal inspection, full ROM. Absent: tenderness, meningismus, lymphadenopathy Respiratory exam: Present: normal lung sounds bilaterally. Absent: respiratory distress, wheezes, rales, rhonchi, stridor Cardiovascular Exam: Present: regular rate, normal rhythm, normal heart sounds. Absent: systolic murmur, diastolic murmur, rubs, gallop, clicks GI/Abdominal exam: Present: soft, normal bowel sounds. Absent: distended, tenderness, guarding, rebound, rigid Neurological exam: Present: alert, oriented X3, CN II-XII intact Psychiatric exam: Present: flat affect Skin exam: Present: warm, dry, intact, normal color. Absent: rash Course Vital Signs 01/31/21 01/31/21 10:05 11:17 Temperature 98.1 F Pulse Rate 90 Respiratory 18 18 Rate Blood Pressure 125/84 O2 Sat by Pulse 98 Oximetry Medical Decision Making - Medical Decision Making Patient reevaluated. His case discussed with Dr. Ibrahim recommend outpatient treatment with [facility]. Patient signed safety plan. Patient advised stop using drugs. - Lab Data Lab Results 01/31/21 Range/Units 11:50 Urine Opiates Screen Not Detected (NotDetected) Ur Oxycodone Screen Not Detected (NotDetected) Urine Methadone Screen Not Detected (NotDetected) Ur Propoxyphene Screen Not Detected (NotDetected) Ur Barbiturates Screen Not Detected (NotDetected) U Tricyclic Antidepress Not Detected (NotDetected) Ur Phencyclidine Scrn Not Detected (NotDetected) Ur Amphetamines Screen Detected H (NotDetected) U Methamphetamines Scrn Detected H (NotDetected) U Benzodiazepines Scrn Not Detected (NotDetected) Urine Cocaine Screen Detected H (NotDetected) U Marijuana (THC) Screen Detected H (NotDetected) Disposition Clinical Impression: Bipolar disorder Disposition: HOME SELF-CARE Condition: Stable Instructions (If sedation given, give patient instructions): Bipolar Disorder (ED) Additional Instructions: Please return to the Emergency Department if symptoms worsen or any other concerns. Is patient prescribed a controlled substance at d/c from ED?: No Referrals: Lina Jaime MD [Primary Care Provider] - 1-2 days Time of Disposition: 13:31
[2021-01-31 12:18] LABS: Cocaine Screen,Urine Detected (NotDetected); Opiate Screen,Urine Not Detected (NotDetected); Phencyclidine Screen,Urine Not Detected (NotDetected); Urn Cannabinoid Scrn Detected (NotDetected)
[2021-01-31 12:19] LABS: Amphetamine Screen,Urine Detected (NotDetected); Barbiturate Screen,Urine Not Detected (NotDetected); Benzodiazepines Screen,Urine Not Detected (NotDetected); Methadone Screen, Urine Not Detected (NotDetected); Oxycodone Screen, Urine Not Detected (NotDetected); Tricyclic Antidepressant,Urine Not Detected (NotDetected)
[2021-01-31 13:59] VITALS: BP 120/71; PULSE 80; TEMP 98.2
== END 2021-01-31 13:59 | disposition home or self-care (01) ==
LOC: EC 10:04
DX: F31.9 Bipolar disorder, unspecified (principal); F41.9 Anxiety disorder, unspecified; F17.290 Nicotine dependence, other tobacco product, uncomplicated; F15.90 Other stimulant use, unspecified, uncomplicated
CPT/HCPCS: 80306; 82075; 99285